=== PATIENT | male | born 1945 | race Caucasian/White ===

== ENCOUNTER → 2016-07-03 | Outpatient (CLI) | payer OTHER | LOC: MMPC 09:00 | DX: R21 Rash and other nonspecific skin eruption (principal); E78.00 Pure hypercholesterolemia, unspecified; I10 Essential (primary) hypertension; K20.0 Eosinophilic esophagitis ==

== ENCOUNTER → 2016-10-02 | Outpatient (CLI) | payer OTHER | LOC: MMPC 11:11 | DX: R21 Rash and other nonspecific skin eruption (principal); E78.00 Pure hypercholesterolemia, unspecified; Z85.46 Personal history of malignant neoplasm of prostate; K21.0 Gastro-esophageal reflux disease with esophagitis; I10 Essential (primary) hypertension; H90.5 Unspecified sensorineural hearing loss; K20.0 Eosinophilic esophagitis | CPT/HCPCS: 99213; G0463 ==